=== PATIENT | male | born 1990 | race Caucasian/White ===

== ENCOUNTER 2024-03-16 20:40 | Emergency (ER) | payer BC ==
[~2024-03-16] VITALS: Ht 182.9 cm; Wt 138.2 kg
[2024-03-16 20:43] VITALS: TEMP 98.4
[2024-03-16] MEDS: methylPREDNISolone 125MG 2ML VIAL IV ONE (22:07)
[2024-03-16] MEDS: NS 1,000 ML IV ONE (22:07)
[2024-03-16 22:08] LABS: BASO % 0.1 % (0.0-1.0); EOS % 0.2 % (0.0-3.0); HEMATOCRIT 46.2 % (42.0-52.0); HEMOGLOBIN 15.4 g/dl (13.5-17.5); LYMPH # 3.2 10^3/uL (1.5-5.0); LYMPH % 19.6 % (24.0-44.0); MEAN CORPUSCULAR HEMOGLOBIN 29.1 pg (27.0-33.0); MEAN CORPUSCULAR HGB CONC 33.3 g/dl (32.0-36.5); MEAN CORPUSCULAR VOLUME 87.3 fl (80.0-96.0); MONO # 0.4 10^3/uL (0.0-0.8); MONO % 2.2 % (2.0-8.0); NEUTROPHILS # 12.4 10^3/uL (1.5-8.5); NEUTROPHILS % 77.6 % (36.0-66.0); PLATELET COUNT, AUTOMATED 418 10^3/uL (150-450); RED BLOOD COUNT 5.29 10^6/uL (4.30-6.10); WHITE BLOOD COUNT 16.1 10^3/uL (4.0-10.0)
[2024-03-16] MEDS: diphenhydrAMINE 50MG/ML VIAL IV ONE (22:08)
[2024-03-16] MEDS: FAMOTIDINE IV BAG 20 MG in IV 1 EA IV ONE (22:12)
[2024-03-16] MEDS: EPINEPHrine INJ 1 MG/ML 1ML AMP IM STA (22:12)
[2024-03-16 22:18] LABS: LIPASE 30 U/L (12-53)
[2024-03-16 22:20] LABS: ALBUMIN 3.8 G/DL (3.2-5.2); ALKALINE PHOSPHATASE 137 U/L (46-116); ALT/SGPT 75 U/L (7.0-40); AST/SGOT 31 U/L (<34); BILIRUBIN,DIRECT 0.2 MG/DL (<0.4); BILIRUBIN,TOTAL 0.4 MG/DL (0.3-1.2); BLOOD UREA NITROGEN 19 MG/DL (9-23); CALCIUM LEVEL 9.6 MG/DL (8.5-10.1); CARBON DIOXIDE LEVEL 22 MMOL/L (20-31); CHLORIDE LEVEL 108 MMOL/L (98-107); CREATININE FOR GFR 1.38 MG/DL (0.70-1.30); GLOMERULAR FILTRATION RATE > 60.0 (>60); GLUCOSE, FASTING 135 MG/DL (60-100); POTASSIUM SERUM 4.5 MMOL/L (3.5-5.1); SODIUM LEVEL 139 MMOL/L (136-145); TOTAL PROTEIN 7.3 G/DL (5.7-8.2)
[2024-03-16 22:31] LABS: RSV AMPLIFICATION NEGATIVE (NEGATIVE)
[2024-03-17 02:30] VITALS: BP 112/57; O2SAT 95
[2024-03-17] MEDS ORDERED: EPIP0.3I2 IM (02:34)
[2024-03-17] MEDS ORDERED: PRED20TA PO (02:34)
== END 2024-03-17 02:56 | disposition home or self-care (01) ==
LOC: M ED 20:40
DX: T78.00XA Anaphylactic reaction due to unspecified food, initial encounter (principal); J45.909 Unspecified asthma, uncomplicated; F12.10 Cannabis abuse, uncomplicated; F10.10 Alcohol abuse, uncomplicated; Z91.018 Allergy to other foods; Z79.52 Long term (current) use of systemic steroids; Z79.899 Other long term (current) drug therapy
CPT/HCPCS: 80048; 80076; 83690; 85025; 87631; 93041; 96365; 96366; 96372; 96374; 96375; 99285; J0171; J1200; J2919; S0028

== ENCOUNTER 2024-03-20 06:57 | Emergency (ER) | payer BC ==
[~2024-03-20] VITALS: Ht 182.9 cm; Wt 138.6 kg
[~2024-03-20 06:57] MED LIST: EPIP0.3I2 IM; PRED20TA PO
[2024-03-20 09:19] VITALS: TEMP 98.3
[2024-03-20 10:42] VITALS: O2SAT 98
[2024-03-20 10:45] VITALS: BP 130/68
[2024-03-20] MEDS ORDERED: EPIP0.3I2 IM (10:46)
[2024-03-20] MEDS ORDERED: PRED20TA PO (10:46)
== END 2024-03-20 10:53 | disposition home or self-care (01) ==
LOC: M ED 06:57
DX: T78.40XA Allergy, unspecified, initial encounter (principal); J45.909 Unspecified asthma, uncomplicated; Z91.018 Allergy to other foods; Z79.52 Long term (current) use of systemic steroids; Z79.899 Other long term (current) drug therapy; Z91.012 Allergy to eggs